=== PATIENT | male | born 1975 | race Caucasian/White ===

== ENCOUNTER 2019-07-19 11:06 | Emergency (ER) | payer OTHER, SELFPAY ==
[2019-07-19 11:16] VITALS: BP 151/83; PULSE 62; RESP 16; TEMP 36.6; O2SAT 99
--- NOTE | 2019-07-19 11:29 | ED.GENADULT ---
HPI - General Adult General Chief complaint: Skin/Abscess/Foreign Body Stated complaint: rash Time Seen by Provider: 07/19/19 11:29 Source: patient Mode of arrival: ambulatory Limitations: no limitations History of Present Illness HPI narrative: 44-year-old male patient presents to the [facility] with complaints of a rash to abdomen, genitalia, back, buttocks and bilateral legs for the past 7 days. Patient states he thinks he may have come in contact with some poison oak. Patient states he did do a tele-doc visit with his primary doctor and was given a Medrol Dosepak in which he is getting ready to take the last dose today. Patient states that the rash continues to spread and he does not feel like he is getting any better. Patient denies any chest pain or shortness of breath. Patient states he has done a Depo-Medrol shot before in the past which has helped and requesting that today. Related Data Allergies Allergy/AdvReac Type Severity Reaction Status Date / Time No Known Allergies Allergy Unknown Verified 07/27/07 06:30 [facility] Allergy Unknown Uncoded 09/16/02 13:21 Review of Systems Review of Systems: Narrative: CONSTITUTIONAL: Denies fever, chills, or sweats. EYES: Denies visual changes, redness, or discharge. ENT: Denies rhinorrhea, congestion, sore throat, or otalgia. CARDIOVASCULAR: Denies chest pain, palpitations, or edema. RESPIRATORY: Denies cough or dyspnea. GASTROINTESTINAL: Denies abdominal pain, nausea, vomiting, or diarrhea. GENITOURINARY: Denies dysuria or hematuria. SKIN: Positive rash with itching to lower abdomen, thighs, buttocks, genitalia, and neck area x10 days MUSCULOSKELETAL: Denies back pain, joint pain, or myalgia. NEUROLOGIC: Denies headache, numbness, or weakness. PSYCHIATRIC: Denies anxiety or depression. [facility] Family History Family History Mother Patient's mother is , Onset Age: 49 Grandparent Cerebrovascular accident Father Family history of type 1 diabetes mellitus Social History Social History Smoking status: Never smoker Alcohol intake: never Comments At the time of my signature I agree with nursing past medical history, surgical, social, and family history. There is no relevant family history pertinent to the presenting complaint. Exam Narrative: Exam Narrative: GENERAL: Well-appearing, well-nourished, and in no acute distress. HEAD: Normocephalic, atraumatic. EYES: PERRLA and EOMI. ENT: Nares clear, no rhinorrhea or epistaxis. Mucous membranes moist. NECK: Supple. No lymphadenopathy CHEST: Clear to auscultation. No respiratory distress. HEART: Regular rate and rhythm. No murmur heard. Normal peripheral pulses. ABDOMEN: Soft, nontender, nondistended, normal active bowel sounds. EXTREMITIES: Normal range of motion. No edema. SKIN: Warm, dry, patient has a rash that appears to be flat, with erythema, that appear to be in clusters to the lower abdomen under the umbilicus, various areas on the back, and on the anterior neck. NEURO: No focal deficits. Alert and oriented x3. Course Vital Signs Vital signs: Vital Signs Temperature 36.6 C 07/19/19 11:16 Pulse Rate 62 07/19/19 11:16 Respiratory Rate 16 07/19/19 11:16 Blood Pressure 151/83 H 07/19/19 11:16 Pulse Oximetry 99 07/19/19 11:16 Temperature 36.6 C 07/19/19 11:16 Pulse Rate 62 07/19/19 11:16 Respiratory Rate 16 07/19/19 11:16 Blood Pressure 151/83 H 07/19/19 11:16 Pulse Oximetry 99 07/19/19 11:16 Vital signs reviewed. The patient has been informed that they may have pre-hypertension or Hypertension based on a BP reading in the department. I recommend that the patient call the primary care provider listed on their discharge instructions or a physician of their choice this week to arrange follow up for further evaluation of possible pre-hypertension or Hy
[2019-07-19] MEDS: methylPREDNISolone ACETATE 40 MG/ML VIAL IM (11:45)
== END 2019-07-19 12:04 | disposition home or self-care (01) ==
PROVIDERS: Emergency Provider Nurse Practitioner Family; PCP Family Medicine
DX: L23.7 Allergic contact dermatitis due to plants, except food (principal)
CPT/HCPCS: 99213; G0463; J1030

== ENCOUNTER 2022-01-13 16:08 | Outpatient (CLI) | payer OTHER, SELFPAY ==
[2022-01-13 19:41] LABS: Alanine Aminotransferase 29 U/L (6-50); Albumin Level 4.6 g/dL (3.5-5.1); Alkaline Phosphatase 73 U/L (38-126); Anion Gap 11 mmol/L (8-16); Aspartate Amino Transferase 26 U/L (17-59); Bilirubin,Total 0.7 mg/dL (0.2-1.3); Blood Urea Nitrogen 17 mg/dL (9-20); Calcium 9.4 mg/dL (8.4-10.2); Carbon Dioxide 23 mmol/L (22-30); Chloride 104 mmol/L (98-107); Cholesterol 221 mg/dL (0-200); Estimated Glomerular Filt Rate > 60; Glucose 93 mg/dL (65-110); HDL Direct 51 mg/dL; Sodium 138 mmol/L (137-145); Triglycerides 77 mg/dL (<150)
[2022-01-13 19:46] LABS: Basophils Percent Auto 0.6 % (0.2-1.2); Eosinophils Absolute Auto 0.2 K/mm3 (0-0.3); Eosinophils Percent Auto 2.8 % (0-4.4); Hematocrit 45.7 % (42.0-52.0); Hemoglobin 15.4 g/dL (14.0-18.0); Immature Granulocyte Absolute 0.02 K/mm3 (0.00-0.031); Immature Granulocyte Percent A 0.3 % (0-0.5); Lymphocytes Absolute Auto 2.58 K/mm3 (0.9-3.2); Lymphocytes Percent Auto 36.5 % (18.3-44.2); Mean Corpuscular HGB Conc 33.7 g/dl (32-36); Mean Corpuscular Volume 86.1 fl (80-100); Mean Platelet Volume 9.9 fl (7.4-10.4); Monocytes Absolute Auto 0.6 K/mm3 (0.1-0.6); Monocytes Percent Auto 8.3 % (2.6-8.5); Neutrophils Absolute Auto 3.6 K/mm3 (1.3-6.7); Neutrophils Percent Auto 51.5 % (45.5-73.1); Platelet Count Result 204 k/mm3 (150-375); Red Blood Count 5.31 M/mm3 (4.6-6.20); Red Cell Distribution Width 13.1 % (11.5-14.5); White Blood Count 7.1 K/mm3 (4.5-10.0)
[2022-01-13 19:53] LABS: LDL Cholesterol Direct 119 mg/dL
[2022-01-13 20:10] LABS: Vitamin D 25 Hydroxy 40.1 ng/mL
== END 2022-01-13 16:09 | disposition home or self-care (01) ==
LOC: ANHGOSHLAB 16:10
PROVIDERS: PCP Family Medicine; Visit Provider Family Medicine
DX: Z00.00 Encounter for general adult medical examination without abnormal findings (principal); Z13.220 Encounter for screening for lipoid disorders; E55.9 Vitamin D deficiency, unspecified; F41.9 Anxiety disorder, unspecified; Z13.29 Encounter for screening for other suspected endocrine disorder
CPT/HCPCS: 36415; 80053; 80061; 82306; 84443; 85025

== ENCOUNTER 2023-09-17 08:10 | Outpatient (CLI) | payer OTHER, SELFPAY ==
--- NOTE | ~2023-09-17 | MR_ITS ---
EXAMINATION: MR knee LT wo con DATE: 09/17/2023 10:09 INDICATION: Medial meniscal tear TECHNIQUE: Magnetic resonance imaging (MRI) of the medial left knee was performed without intravenous contrast. Sequences included coronal PD-weighted FSE, coronal PD-weighted FS FSE, sagittal T2-weigh costa FSE, sagittal PD-weighted FS FSE and axial PD weighted fat saturated FSE. COMPARISON: None. FINDINGS: Medial compartment: The proximal medial meniscal tear which includes a bucket-handle tear with laterally displaced menisc al flap which extends anteroposteriorly along the cephalad margin of the medial intercondylar eminenc e as well as and longitudinal horizontal tear plane in the nondisplaced portion of the posterior horn . Articular cartilage is normal. Lateral compartment: Lateral meniscus is normal. Articular cartilage is normal. Patellofemoral compartment: Shallow chondral ulceration at the mid to inferior aspect of the trochlear groove and inferior aspect of the medial trochlea, the latter with superimposed deep chondral fissuring and mild underlying cor tical irregularity. Patellar cartilage is normal. Ligaments and tendons: Anterior and posterior cruciate ligaments are normal. The medial collateral ligament and fibular zachary ateral ligament complex are normal. The extensor mechanism is normal. The visualized medial and later al hamstring tendons as well as the iliotibial band are normal. Fluid: Physiologic amount of fluid in the joint space. No loose osteochondral bodies identified. Small gangl ion cyst anterior to the distal semimembranosus tendon. Osseous/other: Normal marrow signal. No fracture or pathologic marrow replacing process. IMPRESSION: 1. Complex medial meniscal tear including a laterally displaced bucket-handle flap. 2. 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 Reviewed, dictated and finalized at location B. IMPRESSION: 1. Complex medial meniscal tear including a laterally displaced bucket-handle f lap. 2. 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
== END 2023-09-17 08:11 ==
PROVIDERS: PCP Family Medicine; Visit Provider Orthopaedic Surgery
DX: S83.242A Other tear of medial meniscus, current injury, left knee, initial encounter (principal); X58.XXXA Exposure to other specified factors, initial encounter; M17.12 Unilateral primary osteoarthritis, left knee
CPT/HCPCS: 73721

== ENCOUNTER 2023-10-08 00:23 | Day surgery (SDC) | payer OTHER, SELFPAY ==
[2023-10-04 08:36] VITALS: BMI 26.1
--- NOTE | 2023-10-04 08:37 | PC.NURSE ---
Report to the Outpatient Waiting Room, entrance under the green pavilion located off [facility], at time _1000_ on date _[id number]_. Planned Procedure Time: _1200_. Time changes happen often and if your time is changed the preop area will call you the afternoon before. - You and your visitor will be asked to self-screen and do not enter if you have any COVID symptoms. - A mask is optional within the hospital at this time. Patients may have clear liquids (water, carbonated beverages, clear teas, apple juice) until 3 hours prior to surgery with a maximum of 20 ounces. - No food from midnight until time of surgery Take the following medications with a SIP of water the morning of surgery: ___Alprazolam if needed. DO NOT STOP ANY OF YOUR OTHER PRESCRIPTION MEDICATIONS PRIOR TO SURGERY ?EXCEPT THE FOLLOWING Medications to discontinue per physician None Date to take last dose Please no make-up, nail surinamese, hairspray, perfume, deodorant, or body powder the day of surgery. No jewelry (including any body piercings) or valuables the day of surgery, leave them at home. Please take a shower or bath the night before, or the morning of, surgery with an antibacterial soap. Wear comfortable, loose fitting clothing. - Jewelry must be removed prior to entering the operating room. Rings and piercings that are not removed may be cut off. - The hospital will not accept responsibility for valuables. - Please leave all valuables, including medications, at home the day of surgery. If you are going home after surgery, a licensed hack driver must drive you home. - NO public transportation without another adult if you receive anesthesia. - We recommend that an adult stay with you for 24 hours following discharge. - We also recommend that you do not drive, make important decision, drink alcoholic beverages, or take any drugs that were not prescribed by your health care provider for at least 24 hours after your discharge time. Follow any additional instructions given to you from your surgeon. If you or anyone in your household have experienced Covid symptoms in the past week, please notify your surgeon or the nurse liaison at the phone number below for possible testing. Telephone instructions given to __Billy___and asked if any additional questions and then verbalized understanding. Patient advised to call surgeon office or pre surgery nurse liaison [phone] if any additional questions.
--- NOTE | 2023-10-04 12:44 | PM.IMHP ---
H&P: HPI History of Present Illness Date/Time: 10/04/23 12:44 Chief Complaint: Patient has catching and locking of his left knee. He has mechanical type symptoms and has failed conservative treatment. His MRI scan shows a meniscal tear. Review of Systems Musculoskeletal: Musculoskeletal: Reports arthralgias, Reports joint swelling and Reports stiffness [facility] Past Medical History Medical History Anxiety Surgical History Surgical History History of appendectomy (~1998) History of hand surgery (~2009) Right hand metacarpal fracture - ORIF History of medial meniscus repair of right knee (~2012) Family History Family History Mother Patient's mother is , Onset Age: 49 Grandparent Cerebrovascular accident Father Family history of type 1 diabetes mellitus Social History Social History Smoking status: Never smoker Alcohol intake: current Drinks per week: 1 Substance use: never Substance use type: does not use Do You Feel Safe in your Home?: Yes Lack of Transportation: No Lack of Food: Never True Current Housing: I Have Housing Concerned About Future Housing: No Difficulty Paying Gas/Electric Bills: No Difficulty Paying for Meds: No Currently Unemployed: No Education: Associate Degree Difficulty w/ Childcare or Family Care: No Living arrangements: with family Additional living arrangements comments: and Two children 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 He is tender medially has catching locking and pain mechanical symptoms. He has got a positive Gabriela's test and pain with manipulation. Neurologically he is intact. Eyes: General: appearance normal, both eyes and all related structures Neck: Neck: supple Resp: Effort & Inspection: normal respiratory effort Cardio: Rate: regular rate Rhythm: regular rhythm Radiology Reports: Comments: Patient: Peter Espinoza EXAMINATION: MR knee LT wo con DATE: 09/17/2023 10:09 INDICATION: Medial meniscal tear TECHNIQUE: Magnetic resonance imaging (MRI) of the medial left knee was performed without intravenous contrast. Sequences included coronal PD-weighted FSE, coronal PD-weighted FS FSE, sagittal T2-weighted FSE, sagittal PD-weighted FS FSE and axial PD weighted fat saturated FSE. COMPARISON: None. FINDINGS: Medial compartment: The proximal medial meniscal tear which includes a bucket-handle tear with laterally displaced meniscal flap which extends anteroposteriorly along the cephalad margin of the medial intercondylar eminence as well as and longitudinal horizontal tear plane in the nondisplaced portion of the posterior horn. Articular cartilage is normal. Lateral compartment: Lateral meniscus is normal. Articular cartilage is normal. Patellofemoral compartment: Shallow chondral ulceration at the mid to inferior aspect of the trochlear groove and inferior aspect of the medial trochlea, the latter with superimposed deep chondral fissuring and mild underlying cortical irregularity. Patellar cartilage is normal. Ligaments and tendons: Anterior and posterior cruciate ligaments are normal. The medial collateral ligament and fibular collater
[2023-10-08] VITALS (8 sets, daily range): BP systolic 108–123; BP diastolic 66–81; PULSE 47–76; RESP 14–20; TEMP 36.3–36.6; O2SAT 100; BMI 25.9
[2023-10-08] MEDS: KETOROLAC 15 MG/ML VIAL (*BKC) IV PUSH (07:54)
[2023-10-08] MEDS: ACETAMINOPHEN 500 MG TABLET 1000 MG PO (07:55)
[2023-10-08] MEDS: LACTATED RINGERS 1,000 ML 30 ML IV CONT (08:00)
--- NOTE | 2023-10-08 08:11 | WPDHPUPDATE1 ---
History and Physical Update Update Date/Time: 10/08/23 08:11 History and Physical has been reviewed, including an updated exam of the patient. There are NO changes in the patient's condition. Risks, benefits, and alternatives have been discussed and questions answered. Patient agrees to proceed with procedure.
--- NOTE | 2023-10-08 08:20 | WPDANESEPPF ---
Anes - Initial Pre Proc Eval Procedure: Operation Date: 10/08/23 10:00 Proposed Procedures p Left Knee Arthroscopy, Proceed As Indicated - Wale Guillen MD Date/Time: 10/08/23 08:20 Surgeon: Wale Guillen MD Pre Op Diagnosis: Medial Meniscal Tear Lt Knee Patient Data Age: 48 Gender: M Height: 1.88 m Weight: 91.5 kg Last Vital Signs Temp 98 F 10/08/23 08:03 Pulse 65 10/08/23 08:03 Resp 16 10/08/23 08:03 BP 123/77 10/08/23 08:03 Pulse Ox 100 10/08/23 08:03 O2 Del Method Room Air 10/08/23 08:03 Allergies Allergy/AdvReac Type Severity Reaction Status Date / Time paroxetine AdvReac Intermediate Hallucinati Verified 10/04/23 08:30 ng Home Medications Medication Instructions Recorded Confirmed Type alprazolam 0.5 mg tablet 0.5 mg PO BID PRN anxiety #30 tabs 11/07/21 10/04/23 Rx hydrocodone 5 mg-acetaminophen 325 1 tablet PO Q4H PRN pain #30 tabs 10/08/23 Rx mg tablet Patient hx anesthesia problems: none Family hx anesthesia problems: none Results Review: All pre-operative results and documents have been reviewed as part of the pre-operative evaluation. COUNTS INCLUDE 234 BEDS AT THE [facility] Past Medical History Medical History Anxiety Surgical History Surgical History History of appendectomy (~1998) History of hand surgery (~2009) Right hand metacarpal fracture - ORIF History of medial meniscus repair of right knee (~2012) Family History Family History Mother Patient's mother is , Onset Age: 49 Grandparent Cerebrovascular accident Father Family history of type 1 diabetes mellitus Social History Social History Smoking status: Never smoker Alcohol intake: current Drinks per week: 1 Substance use: never Substance use type: does not use Do You Feel Safe in your Home?: Yes Lack of Transportation: No Lack of Food: Never True Current Housing: I Have Housing Concerned About Future Housing: No Difficulty Paying Gas/Electric Bills: No Difficulty Paying for Meds: No Currently Unemployed: No Education: Associate Degree Difficulty w/ Childcare or Family Care: No Living arrangements: with family Additional living arrangements comments: and Two children 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 ) Neurological: alert and oriented Last oral intake: >/= 8 hours ASA classification: II Emergent: no Anesthetic plan: proceed Anesthesia type and monitoring: general LMA and standard monitoring Results Review: All pre-operative results and documents have been reviewed as part of the pre-operative evaluation. Anxiety, diet controlled hyperlipidemia per records, pt denies. Informed Consent: The patient's anesthetic plan and its attendant risks and benefits were discussed with the patient/family/POA. Questions were solicited and answers provided to the satisfaction of the patient/family/POA.
[2023-10-08] MEDS: ceFAZolin 2 GM/D5W 50 ML 2 GM/50 ML BAG IVPB (08:32)
[2023-10-08] MEDS: LIDO 1%/EPINEPHRINE 1:100,000 50 ML VIAL INFILTRATE (08:42)
--- NOTE | 2023-10-08 09:23 | W.PM.PROC2 ---
Procedure Note - Detailed Date of Procedure 10/08/23 Pre-op Diagnosis Medial Meniscal Tear LEFT Knee Post-op Diagnosis Same Procedure Performed LEFT knee arthroscopy with partial meniscectomy Surgeon Wale Guillen MD Anesthesia General Indications Pain and catching Description of Procedure Patient brought to operating room # 8. An anesthetic was administered. The knee was sterilely prepped and draped in the usual manner. Standard portals were used. Superior medial portal was used for the outflow cannula, inferior lateral portal was used for the scope, inferior medial portal was used for the instruments. Arthroscopy was performed, the patellar femoral joint showed degenerative changes. The medial compartment showed a complex Bucket Handle tear. The lateral compartment showed fraying. The ACL was intact. Using baskets and gregory the meniscal tear was trimmed back to a stable base so the nothing further could be pulled into the joint. I had to switch the scope and instruments throughout the case. Any loose or delaminated fragments were gently trimmed to a stable base. At this point the instruments were withdrawn, sutures placed and patient left the operating room in satisfactory condition. Estimated Blood Loss 20 Drains No Packing No Pathology None sent Complications No immediate complications Condition Stable Disposition PACU [facility] Billing Surgery - Charge Forward: Surgery Billing ([id number] Medial Meniscal Tear)
--- NOTE | 2023-10-08 09:26 | PM.DS ---
DS: Summary Time Spent with Patient Time attestation: Total time spent providing and/or coordinating discharge services: Discharge Plan Discharge Patient Disposition: Home, Self-Care Stand Alone Forms: General Discharge Instructions Discharge Medications: New hydrocodone-acetaminophen 5-325 mg tablet 1 tablet PO Q4H PRN (Reason: pain) Qty: 30 0RF Continued alprazolam 0.5 mg tablet 0.5 mg PO BID PRN (Reason: anxiety) Qty: 30 0RF
== END 2023-10-08 11:05 | disposition home or self-care (01) ==
PROVIDERS: PCP Family Medicine; Visit Provider Orthopaedic Surgery
PROC: (CPT 29870; principal; 2023-10-08 10:00)
DX: M23.332 Other meniscus derangements, other medial meniscus, left knee (principal); F41.9 Anxiety disorder, unspecified
CPT/HCPCS: 29881; A9270; J0690; J1100; J1885; J2250; J2405; J2704; J3010; J7120

== ENCOUNTER 2024-02-20 00:54 | Day surgery (SDC) | payer OTHER, SELFPAY ==
[2024-02-07 14:15] VITALS: BMI 25.7
[2024-02-20 06:41] VITALS: BP 140/58; PULSE 72; RESP 16; TEMP 36.2; O2SAT 100; BMI 25.7
[2024-02-20] MEDS: LACTATED RINGERS 1,000 ML 150 ML IV CONT (06:51)
--- NOTE | 2024-02-20 07:32 | P.PNAN_ITS ---
Anes - Initial Pre Proc Eval Procedure: Operation Date: 02/20/24 08:00 Proposed Procedures p Colonoscopy - Paxton Ordoñez MD Date/Time: 02/20/24 07:32 Surgeon: Paxton Ordoñez MD Pre Op Diagnosis: Screening colon, other diseases of anus/rectum Patient Data Age: 48 Gender: M Height: 1.88 m Weight: 91.1 kg Last Vital Signs Temp 97.1 F L 02/20/24 06:41 Pulse 72 02/20/24 06:41 Resp 16 02/20/24 06:41 BP 140/58 L 02/20/24 06:41 Pulse Ox 100 02/20/24 06:41 O2 Del Method Room Air 02/20/24 06:41 Allergies Allergy/AdvReac Type Severity Reaction Status Date / Time paroxetine AdvReac Intermediate Hallucinati Verified 02/20/24 06:40 ng Home Medications Medication Instructions Recorded Confirmed Type alprazolam 0.5 mg tablet 0.5 mg PO BID PRN anxiety #30 tabs 01/22/24 02/20/24 Rx hydrocortisone acetate 25 mg 25 mg RECTAL PRN PRN Pain 02/07/24 02/20/24 History rectal suppository (Anusol-HC) buspirone 5 mg tablet 5 mg PO BID #60 tabs 02/14/24 02/20/24 Rx Patient hx anesthesia problems: none Family hx anesthesia problems: none Results Review: All pre-operative results and documents have been reviewed as part of the pre- operative evaluation. [facility] Past Medical History Medical History Anxiety Surgical History Surgical History History of appendectomy (~1998) History of hand surgery (~2009) Right hand metacarpal fracture - ORIF History of left knee surgery (~2023) History of medial meniscus repair of right knee (~2012) Family History Family History Mother Patient's mother is , Onset Age: 49 diverticulitis Heart disease Grandparent Cerebrovascular accident Father Family history of type 1 diabetes mellitus Sibling No problems noted. Social History Social History Smoking status: Never smoker Second hand tobacco smoke exposure: Yes Alcohol intake: current Drinks per week: 1 Substance use: never Substance use type: does not use Do You Feel Safe in your Home?: Yes Lack of Transportation: No Lack of Food: Never True Current Housing: I Have Housing Concerned About Future Housing: Decline to Answer Difficulty Paying Gas/Electric Bills: Decline to Answer Difficulty Paying for Meds: Decline to Answer Currently Unemployed: Decline to Answer Education: Associate Degree Difficulty w/ Childcare or Family Care: No Living arrangements: with family Additional living arrangements comments: and Two children Occupation/Education: occupation 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 Informed Consent: The patient's anesthetic plan and its attendant risks and benefits were discussed with the patient/family/POA. Questions were solicited and answers provided to the satisfaction of the patient/family/POA.
--- NOTE | 2024-02-20 07:49 | P.HP_ITS ---
H&P: HPI History of Present Illness Date/Time: 02/20/24 07:49 Chief Complaint: Screening colonoscopy Narrative: This is the patient's first colonoscopy. There are no GI symptoms and there is no family history of colorectal cancer. Review of Systems Review of Systems: All systems reviewed & are unremarkable except as noted in HPI and below PMFSH Past Medical History Medical History Anxiety Surgical History Surgical History History of appendectomy (~1998) History of hand surgery (~2009) Right hand metacarpal fracture - ORIF History of left knee surgery (~2023) History of medial meniscus repair of right knee (~2012) Family History Family History Mother Patient's mother is , Onset Age: 49 diverticulitis Heart disease Grandparent Cerebrovascular accident Father Family history of type 1 diabetes mellitus Sibling No problems noted. Social History Social History Smoking status: Never smoker Second hand tobacco smoke exposure: Yes Alcohol intake: current Drinks per week: 1 Substance use: never Substance use type: does not use Do You Feel Safe in your Home?: Yes Lack of Transportation: No Lack of Food: Never True Current Housing: I Have Housing Concerned About Future Housing: Decline to Answer Difficulty Paying Gas/Electric Bills: Decline to Answer Difficulty Paying for Meds: Decline to Answer Currently Unemployed: Decline to Answer Education: Associate Degree Difficulty w/ Childcare or Family Care: No Living arrangements: with family Additional living arrangements comments: and Two children Occupation/Education: occupation 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 Gender identity (if verbalized by the patient): Male Spiritual care concerns: No Meds Home Medications and Allergies Home Medications Medication Instructions Recorded Confirmed Type alprazolam 0.5 mg tablet 0.5 mg PO BID PRN anxiety #30 tabs 01/22/24 02/20/24 Rx hydrocortisone acetate 25 mg 25 mg RECTAL PRN PRN Pain 02/07/24 02/20/24 History rectal suppository (Anusol-HC) buspirone 5 mg tablet 5 mg PO BID #60 tabs 02/14/24 02/20/24 Rx Allergies Allergy/AdvReac Type Severity Reaction Status Date / Time paroxetine AdvReac Intermediate Hallucinati Verified 02/20/24 06:40 ng Vital Signs Vital Signs - 24 hr 02/20/24 06:41 Temperature 97.1 F L Pulse Rate 72 Respiratory Rate 16 Blood Pressure 140/58 L Pulse Oximetry 100 Oxygen Delivery Room Air Exam Const: General: cooperative and healthy appearing Resp: Effort & Inspection: normal respiratory effort and able to speak in complete sentences Auscultation: clear to auscultation bilaterally Cardio: Rate: regular rate Rhythm: regular rhythm GI: Inspection: normal to inspection GI Palp: No No hepatosplenomegaly present Auscultation: normal bowel sounds Rectal Exam: deferred Skin: General skin exam: normal color Psych: Appearance: grossly normal Mental Status: mental status grossly normal Assessment and Plan Assessment and plan (1) Screening for malignant neoplasm of colon: Code(s): Z12.11 - Encounter for screening for malignant neoplasm of colon Status: Acute Assessment and Plan: The patient is deemed a good candidate for the procedure. Consent signed. Will proceed.
[2024-02-20 08:07] VITALS: BP 112/77; PULSE 69; RESP 17; O2SAT 99
[2024-02-20 08:17] VITALS: BP 111/76; PULSE 66; RESP 15; O2SAT 99
[2024-02-20 08:27] VITALS: BP 121/85; PULSE 60; RESP 21; O2SAT 100
== END 2024-02-20 08:40 | disposition home or self-care (01) ==
PROVIDERS: PCP Family Medicine; Visit Provider Internal Medicine Gastroenterology
PROC: 0DJD8ZZ Inspection of Lower Intestinal Tract, Via Natural or Artificial Opening Endoscopic (ICD-10-PCS; CPT 45378; principal; 2024-02-20 08:00)
DX: Z12.11 Encounter for screening for malignant neoplasm of colon (principal); K64.0 First degree hemorrhoids; F41.9 Anxiety disorder, unspecified
CPT/HCPCS: 45378; J2704; J7120